=== PATIENT | female | born 1945 | race Caucasian/White ===

== ENCOUNTER 2018-12-26 15:30 | Emergency (ER) | payer MEDICARE ==
[~2018-12-26] VITALS: Ht 157.5 cm; Wt 70.3 kg
[2018-12-26 15:58] LABS: BASOPHILS ABSOLUTE AUTO 0.02 K/mm3 (0.00-0.23); BASOPHILS PERCENT AUTO 0 % (0-2); EOSINOPHILS ABSOLUTE AUTO 0.99 K/mm3 (0.00-0.68); EOSINOPHILS PERCENT AUTO 14 % (0-6); Hematocrit 42.5 % (33.0-51.0); Hemoglobin 13.9 g/dL (11.5-16.0); IMMATURE GRAN ABSOLUTE AUTO 0.01 K/mm3 (0.00-0.10); IMMATURE GRAN PERCENT AUTO 0 % (0-1); LYMPHOCYTES ABSOLUTE AUTO 2.84 K/mm3 (0.84-5.20); LYMPHOCYTES PERCENT AUTO 40 % (21-46); MONOCYTES ABSOLUTE AUTO 0.43 K/mm3 (0.16-1.47); MONOCYTES PERCENT AUTO 6 % (4-13); Mean Corpuscular HGB 31.7 pg (26.0-34.0); Mean Corpuscular HGB Conc 32.7 g/dL (31.5-36.5); Mean Corpuscular Volume 97 fL (80-100); Mean Platelet Volume 9.5 fL (9.1-12.4); NEUTROPHILS ABSOLUTE AUTO 2.89 K/mm3 (1.96-9.15); NEUTROPHILS PERCENT AUTO 40 % (41-73); Platelet Count 250 K/mm3 (150-400); RDW Coefficient Variation 12.8 % (11.7-14.2); Red Blood Cell Count 4.38 M/mm3 (3.80-5.20); White Blood Cell Count 7.18 K/mm3 (4.00-11.30)
[2018-12-26 16:19] LABS: Anion Gap 7 mmol/L (6-16); Blood Urea Nitrogen 19 mg/dL (8-24); Bun/Creatinine Ratio 24.2 (12.0-20.0); CO2, Blood 25 mmol/L (21-32); Calcium, Blood 9.3 mg/dL (8.5-10.1); Chloride, Blood 109 mmol/L (98-108); Creatinine, Blood 0.79 mg/dL (0.40-1.00); Glomerular Filtration Rate >60 (60-); Glucose, Blood 102 mg/dL (70-99); Potassium, Blood 4.2 mmol/L (3.5-5.5); Sodium, Blood 141 mmol/L (136-145); Troponin I <0.015 ng/mL (0.000-0.040)
[2018-12-26] MEDS ORDERED: STIOLTO RESPIMAT4 GM IH (16:34)
[2018-12-26] MEDS ORDERED: ALBU90OI6 INH (16:34)
[2018-12-26] MEDS ORDERED: ERGO400 PO (16:34)
[2018-12-26] MEDS ORDERED: PRAV20 PO (16:34)
[2018-12-26] MEDS ORDERED: Prednisone20 MG PO (19:28)
== END 2018-12-26 19:39 | disposition home or self-care (01) ==
LOC: ER 15:30
PROVIDERS: Physician Assistant
DX: J45.901 Unspecified asthma with (acute) exacerbation (principal); R09.02 Hypoxemia; Z79.899 Other long term (current) drug therapy
CPT/HCPCS: 36415; 71046; 80048; 84484; 85025; 93005; 93010; 94640; 94644; 96365; 96366; 96375; 99285-25; J2930; J3475

== ENCOUNTER 2022-02-25 07:16 | Day surgery (SDC) | payer MEDICARE ==
[~2022-02-25] VITALS: Ht 157.5 cm; Wt 66.0 kg
[~2022-02-25 07:16] MED LIST: ALBU90OI6 INH; ERGO400 PO; PRAV20 PO; Prednisone20 MG PO; QVAR REDIHALE10.6 G2; STIOLTO RESPIMAT4 GM IH
--- NOTE | 2022-02-25 07:40 | NUR ---
02/25/22 0740 Constantine Galvan CALL LIGHT WITHIN REACH. ESTEE AT 0739 AND BRYNN AT 0744 IN THE RIGHT EYE
== END 2022-02-25 09:14 | disposition home or self-care (01) ==
LOC: ORSCSDS 07:16
PROVIDERS: Ophthalmology
PROC: 08RJ3JZ Replacement of Right Lens with Synthetic Substitute, Percutaneous Approach (ICD-10-PCS; principal; 2022-02-25 08:30)
DX: H25.13 Age-related nuclear cataract, bilateral (principal); J45.909 Unspecified asthma, uncomplicated; Z79.899 Other long term (current) drug therapy
CPT/HCPCS: J2001; J2250; J2704; J3010; J3301; J7040; V2632

== ENCOUNTER 2022-03-13 06:50 | Day surgery (SDC) | payer MEDICARE ==
[~2022-03-13] VITALS: Ht 157.5 cm; Wt 65.5 kg
--- NOTE | 2022-03-13 07:09 | NUR ---
03/13/22 0709 Constantine Galvan CALL LIGHT WITHIN REACH
== END 2022-03-13 08:45 | disposition home or self-care (01) ==
LOC: ORSCSDS 06:50
PROVIDERS: Ophthalmology
PROC: 08RK3JZ Replacement of Left Lens with Synthetic Substitute, Percutaneous Approach (ICD-10-PCS; principal; 2022-03-13 08:00)
DX: H25.12 Age-related nuclear cataract, left eye (principal); J45.909 Unspecified asthma, uncomplicated; Z79.899 Other long term (current) drug therapy
CPT/HCPCS: J2001; J2250; J3010; J3301; J7040; V2632